=== PATIENT | male | born 1960 | race Caucasian/White ===

== ENCOUNTER 2017-03-05 09:40 | Day surgery (SDC) | payer OTHER ==
[2017-02-27 11:59] VITALS: BMI 39.5
[~2017-03-05 09:40] MED LIST: LACTATED RINGERS 1,000 ML IV SCH; Pre Op ABX Message 1 EACH MISC MISCELLANE ONE
[2017-03-05 10:22] LABS: Glucose,Whole Blood 115 mg/dL (75-99)
[2017-03-05] MEDS ORDERED: LIDOCAINE 1% 20 ML VIAL (10MG/ML) FOR IV START INTRADERMA ONE (10:27)
[2017-03-05] MEDS ORDERED: ONDANSETRON 4 MG/2 ML VIAL IVP ONE (10:28)
[2017-03-05 10:36] LABS: INR 1.1 (<1.2); Prothrombin Time 11.3 sec (9.0-12.0)
[2017-03-05 10:40] LABS: Basophils % (A) 1 %; CH 30.1; CHCM 32.8; Eosinophils # (A) 0.1 k/uL (0-0.7); Eosinophils % (A) 1 %; HCT 45.2 % (39.0-53.0); HDW 2.32; HGB 14.5 gm/dL (13.0-17.5); Luc # (Auto) 0.07; Luc % (Auto) 1; Lymphocytes # (A) 1.3 k/uL (1.0-4.8); Lymphocytes % (A) 27 %; MCH 29.6 pg (25.0-35.0); MCHC 32.1 g/dL (31.0-37.0); MCV 92.2 fL (80.0-100.0); Mean Platelet Volume 7.1; Monocytes # (A) 0.5 k/uL (0-1.0); Monocytes % (A) 10 %; Neutrophils % (A) 60 %; RDW 14.1 % (11.5-15.5); WBC (Perox) 4.79
[2017-03-05 10:42] LABS: Anion Gap 9 mmol/L; Blood Urea Nitrogen 22 mg/dL (9-20); Calcium 9.7 mg/dL (8.4-10.2); Carbon Dioxide 25 mmol/L (22-30); Chloride 105 mmol/L (98-107); Glucose 117 mg/dL (74-99); Non-African American GFR(MDRD) >60 (>60 ml/min/1.73 sqM); Potassium 4.7 mmol/L (3.5-5.1); Sodium 139 mmol/L (137-145)
[2017-03-05] MEDS ORDERED: ceFAZolin 3 GM in SODIUM CHLORIDE 0.9% 100 ML IVPB ONE (11:19)
[2017-03-05] MEDS ORDERED: ROPIVACAINE 246.25 MG, EPINEPHrine 0.5 MG, KETOROLAC 30 MG, cloNIDine HCL/PF 80 MCG, WA... MISCELLANE ONE ×5 (12:00)
[2017-03-05] MEDS ORDERED: fentaNYL (PF) 50 MCG/ML 2 ML AMP ONE (12:31)
[2017-03-05] MEDS ORDERED: ROCURONIUM BROMIDE 10 MG/ML 10 ML VIAL IV ONE (12:31)
[2017-03-05] MEDS ORDERED: PROPOFOL 10 MG/ML 20 ML VIAL IV ONE (12:31)
[2017-03-05] MEDS ORDERED: LIDOCAINE 1% INJ 10MG/ML (20 ML MDV) ONE (12:31)
[2017-03-05] MEDS ORDERED: GLYCOPYRROLATE 0.2 MG/ML 2 ML VIAL ONE (12:31)
[2017-03-05] MEDS ORDERED: NEOSTIGMINE 1 MG/ML 10 ML VIAL ONE (12:31)
[2017-03-05] MEDS ORDERED: MIDAZOLAM 2 MG/2 ML VIAL ONE (12:31)
[2017-03-05] MEDS ORDERED: SUCCINYLCHOLINE CHLORIDE 100 MG/5 ML SYR IV ONE (12:31)
[2017-03-05] MEDS ORDERED: ceFAZolin 3,000 MG in SODIUM CHLORIDE 0.9% IRRIGATIO 3,000 ML IRRIGATION ONE (12:57)
[2017-03-05] MEDS ORDERED: LACTATED RINGERS 1,000 ML IV ONE (13:29)
--- NOTE | 2017-03-05 13:31 | P.OP ---
Date of Procedure: 03/05/17 Preoperative Diagnosis: Torn quadriceps tendon right knee Postoperative Diagnosis: Torn quadriceps tendon right knee Procedure(s) Performed: Repair quadriceps tendon right knee Anesthesia: spinal Surgeon: Sanjay Alcaraz Process Artist #1: Kerry Casas Estimated Blood Loss (ml): 20 Pathology: none sent Condition: stable Disposition: PACU Indications for Procedure: This is a 56-year-old gentleman that slipped at home and subsequently tore his quadriceps tendon of his left knee. He had an MRI which demonstrates a tear and a palpable defect on physical exam. After discussing the surgical nonsurgical treatment options with him at length, I recommended repair of the quadriceps tendon, and informed consent was obtained. Operative Findings: The operative findings are consistent with a tear of the quadriceps tendon of the left knee. Description of Procedure: Patient was seen in the preoperative area consent was reviewed and operative site was marked with a skin marker. Patient was then brought to the operating room and given preoperative antibiotics intravenously. A spinal anesthetic was administered by the anesthesia department. A tourniquet was placed on the upper thigh and the lower extremity was prepped and draped in usual sterile fashion. A universal timeout was then performed which confirmed the patient's name, surgical site, ALLERGIES, and consent. The lower extremity was then exsanguinated and tourniquet was inflated to 250 mmHg. A standard and anterior midline approach to the knee was performed. The skin and subcutaneous tissue was dissected down to the quadriceps tendon. Quadriceps tear was readily visualized the hematoma was evacuated and any scar tissue was excised around the tear. Next, 5-0 Ethibond sutures were placed at the distal end of the quadriceps tendon at the site of the tear. A modified Krackow suture was used. After the sutures were placed, drill holes were then placed through the patella and the sutures passed through these drill holes to the distal pole of the patella. The sutures were then tied securely. After the repair been completed, the knee was taken through flexion, and found to be stable. The area was then irrigated with pulsatile lavage. The soft tissues were then injected with a ropivacaine solution, which consisted of 246.25 mg of ropivacaine, 0.5 mg of epinephrine, 30 mg of Toradol, 80 g of clonidine, and 48.45 mL of sterile water, for a total of 100 mL of fluid injected. The tourniquet was released, and hemostasis was obtained. The knee was again irrigated. The knee was again taken through range of motion and the repair was found to be stable throughout all range of motion of 0-130. The subcutaneous tissue was closed with 3-0 Vicryl and 3-0 strata fix. Dermabond tape was used for the skin and placed with the knee in flexion. The patient was placed in a sterile dressing. A knee immobilizer was then placed. Patient was then transferred to recovery room in stable condition. The cafe assistant MANDA Yanez was required due the complexity surgery and the need for a skilled assistant wrestling coach. She assisted in positioning, draping, retraction, and closure of the wound.
[2017-03-05 14:12] VITALS: TEMP 97
[2017-03-05] MEDS: HYDROmorphone 0.5 MG/0.5 ML SYRINGE IVP ONE ×4 (14:20→15:00)
[2017-03-05 14:33] LABS: Glucose,Whole Blood 82 mg/dL (75-99)
[2017-03-05 15:33] VITALS: BP 129/75; RESP 15
[2017-03-05 15:42] VITALS: PULSE 63
[2017-03-05] MEDS ORDERED: HYDROcodone/APAP 5-325MG 1 EACH TAB PO ONE ×2 (15:45)
== END 2017-03-05 16:49 | disposition home or self-care (01) ==
LOC: OR 09:40
PROVIDERS: ATTEND Orthopaedic Surgery
DX: S76.111A Strain of right quadriceps muscle, fascia and tendon, initial encounter (principal); W18.43XA Slipping, tripping and stumbling without falling due to stepping from one level to another, initial encounter; E03.9 Hypothyroidism, unspecified; Z85.819 Personal history of malignant neoplasm of unspecified site of lip, oral cavity, and pharynx; I10 Essential (primary) hypertension; M10.9 Gout, unspecified; Z86.711 Personal history of pulmonary embolism; Z79.01 Long term (current) use of anticoagulants; E11.9 Type 2 diabetes mellitus without complications; Z79.4 Long term (current) use of insulin; Z79.899 Other long term (current) drug therapy
CPT/HCPCS: 80048; 85025; 85610; 27385; J2250; J2710; J0690 ×2; J2405; J2001; J3010; J0330; J2704; J1170